=== PATIENT | male | born 1950 | race Caucasian/White ===

== ENCOUNTER → 2016-10-27 | Outpatient (CLI) | payer SELFPAY | END | disposition home or self-care (01) | LOC: RAD 08:00 | PROVIDERS: ATTEND Internal Medicine Hematology & Oncology | DX: Z45.2 Encounter for adjustment and management of vascular access device (principal); C85.91 Non-Hodgkin lymphoma, unspecified, lymph nodes of head, face, and neck | CPT/HCPCS: 36569; 76937; 77001; C1751; 71010 ==